=== PATIENT | female | born 1990 ===

== ENCOUNTER 2017-07-21 21:48 | Emergency (ER) | payer OTHER ==
[2017-07-21 22:17] VITALS: BP 112/59; PULSE 93; RESP 18; TEMP 98.8; O2SAT 99
--- NOTE | 2017-07-21 23:25 | ED PDOC ---
Arrival/HPI - General Chief Complaint: Back Pain Time Seen by Provider: 07/21/17 23:21 Historian: Patient EM Caveat: Acuity of Condition - History of Present Illness Narrative History of Present Illness (Text): 07/21/17 23:22 Patient is a 27 year old female with a history of LBP, presents to the ED with severe low back pain while dressing this morning and immediately felt pain down left leg to the knee with associated tingling. Denies fever, chills, trauma, n/v /d, loss of bladder or bowel, saddle paresthesia or any other complaints. Took Advil 400 mg twice with no change in status. Time/Duration: 24 hours Symptom Onset: Sudden Symptom Course: Unchanged Quality: Burning, Throbbing Severity Level: 8 Activities at Onset: Rest, Light Context: Sitting, Standing, Walking, Home Past Medical History - Provider Review Nursing Documentation Reviewed: Yes - Travel History Have you recently traveled outside [place] w/in the past 3 mons?: No - Past History Past History: No Previous - Pulmonary Hx Asthma: Yes - Psychiatric Hx Substance Use: No Family/Social History - Physician Review Nursing Documentation Reviewed: Yes Family/Social History: Unknown Family HX Smoking Status: n Hx Alcohol Use: No Hx Substance Use: No Allergies/Home Meds Allergies/Adverse Reactions: Allergies Penicillins Allergy (Verified 07/21/17 22:17) RASH Review of Systems - Review of Systems Constitutional: Normal Eyes: Normal ENT: Normal Respiratory: Normal Cardiovascular: Normal Gastrointestinal: Normal Genitourinary Female: Normal Musculoskeletal: Back Pain Skin: Normal Neurological: Normal Endocrine: Normal Hemo/Lymphatic: Normal Psychiatric: Normal Physical Exam Vital Signs Reviewed: Yes Vital Signs Temp Pulse Resp BP Pulse Ox 07/21/17 22:12 98.8 F 93 H 18 112/59 L 99 Temperature: Afebrile Blood Pressure: Normal Pulse: Regular Respiratory Rate: Normal Appearance: Positive for: Well-Appearing, Non-Toxic, Comfortable Pain Distress: Moderate Mental Status: Positive for: Alert and Oriented X 3 - Systems Exam Head: Present: Atraumatic, Normocephalic Neck: Present: Normal Range of Motion Respiratory/Chest: Present: Clear to Auscultation, Good Air Exchange. No: Respiratory Distress, Accessory Muscle Use Cardiovascular: Present: Regular Rate and Rhythm, Normal S1, S2. No: Murmurs Abdomen: Present: Normal Bowel Sounds. No: Tenderness, Distention, Peritoneal Signs Back: Present: Normal Inspection, Other (Left SIJ pain, (+) L SLR). No: CVA Tenderness, Midline Tenderness, Paraspinal Tenderness, Pain with Leg Raise, Decubitus Ulcer Upper Extremity: Present: Normal Inspection. No: Cyanosis, Edema Lower Extremity: Present: Normal Inspection. No: Edema Neurological: Present: GCS=15, CN II-XII Intact, Speech Normal Skin: Present: Warm, Dry, Normal Color. No: Rashes Psychiatric: Present: Alert, Oriented x 3, Normal Insight, Normal Concentration Medical Decision Making ED Course and Treatment: 07/21/17 23:23 Impression 27 yr old f with LBP w radiation down left LE x 1 day. On exam (+) SLR, Left, point tenderness to the Left SIJ; the rest of the exam is benign Plan poc hcg Toradol 30 mg IM assess and dispo Progress Note Advised to take naproxen prn and modify activities f/u with Spine and Pain specialist for PT and ongoing care ambulated well out of the ED - Medication Orders Current Medication Orders: Discontinued Medications Ketorolac Tromethamine (Toradol) 30 mg IM STAT STA Stop: 07/21/17 23:22 Last Admin: 07/21/17 23:32 Dose: 30 mg MAR Pain Assessment Document 07/21/17 23:32 OCS (Rec: 07/21/17 23:36 OCS [id number]) Pain Reassessment Is this a pain reassessment? No Sleep Is patient sleeping during reassessment? No Presence of Pain Presence of Pain Yes Pain Scale Used Pain Scale Used Numeric Location Left, Right or Bilateral Bilateral Upper or Lower Lower Pain Location Body Site Back Description Description Constant Intensity of Pain at present 10 Aggravating Factors ADL's IM Administration Charges Document 07/21/17 23:32 OCS (Rec: 07/21/17 23:36 OCS [id number]) Injection Site MAR Injection Site Left Deltoid Charges for Administration # of IM Administrations 1 Disposition/Present on Arrival - Present on Arrival Any Indicators Present on Arrival: Yes History of DVT/PE: No History of Uncontrolled Diabetes: No Urinary Catheter: No History of Decub. Ulcer: No History Surgical Site Infection Following: None - Disposition Have Diagnosis and Disposition been Completed?: Yes Diagnosis: Low back pain, Radicular low back pain Disposition: HOME/ ROUTINE Disposition Time: 23:26 Patient Plan: Discharge Condition: GOOD Discharge Instructions (ExitCare): Low Back Pain in Adults, Radiculopathy Additional Instructions: Deaaugust Morales Please follow up with the recommended spine and pain specialist. If you experience worsening of symptoms in the next 24hrs, return to the ER. Be Well Prescriptions: Naproxen [Naprosyn] 500 mg PO BID 5 Days #10 tablet Referrals: PCP,NO [Primary Care Provider] - Follow up with primary José Miguel Howe MD [Staff Provider] - Follow up with primary Forms: [email or web address] (Senegalese), WORK NOTE
== END 2017-07-21 23:40 | disposition home or self-care (01) ==
LOC: ED 21:48
DX: M54.16 Radiculopathy, lumbar region (principal); M54.5 Low back pain
CPT/HCPCS: 96372; 99282; J1885

== ENCOUNTER 2018-05-17 19:49 | Emergency (ER) | payer MEDICAID, OTHER ==
[2018-05-17 20:01] VITALS: BMI 30.9
[2018-05-17 20:05] VITALS: RESP 18; TEMP 98.2
[2018-05-17] MEDS ORDERED: Naproxen 550 mg Tab PO STA (20:32)
[2018-05-17] MEDS ORDERED: TDAP Vaccine 0.5 mL Syr IM ONE (20:32)
--- NOTE | 2018-05-17 21:23 | ED PDOC ---
Arrival/HPI - General Chief Complaint: Finger,Hand,&Wrist Time Seen by Provider: 05/17/18 19:53 Historian: Patient - History of Present Illness Narrative History of Present Illness (Text): 05/17/18 22:03 28 year old female, with no significant past medical history, presents to the emergency department status post injury. Patient states she slammed her second distal finger on the car door. Patient informs she sustained a partial nail avulsion. Patient states she went to urgent care prior, and was told to come to the ED. Patient informs her TDAP is not up to date. Patient denies any numbness, decreased ROM, active bleeding, or any other complaints. Time/Duration: Prior to Arrival Symptom Onset: Sudden Symptom Course: Unchanged Quality: Stabbing, Throbbing Activities at Onset: Light Past Medical History - Provider Review Nursing Documentation Reviewed: Yes - Past History Past History: No Previous - Infectious Disease Hx of Infectious Diseases: None - Pulmonary Hx Asthma: Yes - Psychiatric Hx Substance Use: No Family/Social History - Physician Review Nursing Documentation Reviewed: Yes Family/Social History: No Known Family HX Smoking Status: Never Smoked Hx Alcohol Use: No Hx Substance Use: No Allergies/Home Meds Allergies/Adverse Reactions: Allergies Penicillins Allergy (Verified 07/21/17 22:17) RASH Home Medications: Home Meds Medication Instructions Recorded Confirmed No Known Home Med 05/17/18 05/17/18 Review of Systems - Physician Review All systems were reviewed & negative as marked: Yes - Review of Systems Musculoskeletal: Myalgias (Right second distal finger) Skin: absent: Laceration Neurological: absent: Other (No Numbness) Physical Exam Vital Signs Reviewed: Yes Vital Signs Temp Pulse Resp BP Pulse Ox 05/17/18 20:04 98.2 F 96 H 18 124/87 99 Temperature: Afebrile Blood Pressure: Normal Pulse: Tachycardic Respiratory Rate: Normal Appearance: Positive for: Well-Appearing, Non-Toxic, Comfortable Pain Distress: None Mental Status: Positive for: Alert and Oriented X 3 - Systems Exam Head: Present: Atraumatic, Normocephalic Pupils: Present: PERRL Extroacular Muscles: Present: EOMI Conjunctiva: Present: Normal Mouth: Present: Moist Mucous Membranes Neck: Present: Normal Range of Motion Respiratory/Chest: Present: Clear to Auscultation, Good Air Exchange. No: Respiratory Distress, Accessory Muscle Use Cardiovascular: Present: Regular Rate and Rhythm, Normal S1, S2. No: Murmurs Abdomen: No: Tenderness, Distention, Peritoneal Signs Back: Present: Normal Inspection Upper Extremity: Present: Normal Inspection, Other (Partial nail avulsion, rest of nail intact and in place). No: Cyanosis, Edema Lower Extremity: Present: Normal Inspection. No: Edema Neurological: Present: GCS=15, CN II-XII Intact, Speech Normal Skin: Present: Warm, Dry, Normal Color. No: Rashes Psychiatric: Present: Alert, Oriented x 3, Normal Insight, Normal Concentration Medical Decision Making ED Course and Treatment: Impression: 28 year old female presents with injury to right second finger. ED course: -- Naproxen -- TDAP -- X-ray right hand Progress notes: 05/17/18 21:17 XR R hand : no fracture, no dislocation, as read by PA. Wound cleaned and dressed. Advised to follow up with primary care physician in 1-2 days without fail. Advised to take medication as prescribed. Return to the emergency room at any time for any new or worsening symptoms. Patient states she fully agrees with and understands discharge instructions. States that she agrees with the plan and disposition. Verbalized and repeated discharge instructions and plan. I have given the patient opportunity to ask any additional questions. - RAD Interpretation Radiology Orders: 05/17/18 20:32 HAND RIGHT 3 VIEWS [RAD] Stat - Medication Orders Current Medication Orders: Discontinued Medications Naproxen (Anaprox Ds) 550 mg PO ONCE STA Stop: 05/17/18 20:33 Last Admin: 05/17/18 20:39 Dose: 550 mg Tetanus/Reduced Diphtheria/Acell Pertussis (Boostrix Vaccine Inj) 0.5 ml IM .ONCE ONE Stop: 05/17/18 20:33 Last Admin: 05/17/18 20:39 Dose: 0.5 ml Immunization Registry Document 05/17/18 20:39 JESSICA (Rec: 05/17/18 20:39 JESSICA [id number]) [facility]-Date provided 04/27/17 MAR Immunization Data Document 05/17/18 20:39 JESSICA (Rec: 05/17/18 20:39 JESSICA [id number]) Immunization Data Vaccine Information Sheet Given Yes - PA / WELFARE ADVISER / Resident Statement MD/DO has reviewed & agrees with the documentation as recorded. - Scribe Statement The provider has reviewed the documentation as recorded by the Scribe Ashvin Hung All medical record entries made by the Scribe were at my direction and personally dictated by me. I have reviewed the chart and agree that the record accurately reflects my personal performance of the history, physical exam, medical decision making, and the department course for this patient. I have also personally directed, reviewed, and agree with the discharge instructions and disposition. Disposition/Present on Arrival - Present on Arrival Any Indicators Present on Arrival: No History of DVT/PE: No History of Uncontrolled Diabetes: No Urinary Catheter: No History of Decub. Ulcer: No History Surgical Site Infection Following: None - Disposition Have Diagnosis and Disposition been Completed?: Yes Diagnosis: Nail avulsion, finger Disposition: HOME/ ROUTINE Disposition Time: 21:15 Patient Plan: Discharge Condition: STABLE Discharge Instructions (ExitCare): Nail Avulsion (DC) Additional Instructions: Thank you for letting us take care of you today. You were treated for fingernail avulsion. The emergency medical care you received today was directed at your acute symptoms. Return to the Emergency Department if your symptoms worsen, do not improve, or if you have any other problems. Please contact your doctor in 2 days for re-evaluation and follow up. Bring any paperwork you were given at discharge with you along with any medications you are taking to your follow up visit. Our treatment cannot replace ongoing medical care by a primary care provider (PCP) outside of the emergency department. Thank you for allowing the [facility] team to be part of your care today. If you had an X-Ray : A Radiologist will review the ED reading if any change in treatment is needed we will contact you. Referrals: Amaury Fiore MD [Primary Care Provider] - Follow up with primary Forms: [employer] (E[place]ian), WORK NOTE
[2018-05-17 22:06] VITALS: BP 122/87; PULSE 89; O2SAT 100
--- NOTE | 2018-05-18 07:25 | RAD ---
PROCEDURE: Right Hand Radiographs. HISTORY: trauma 2nd digit COMPARISON: None. FINDINGS: BONES: Normal. No fracture. JOINTS: Normal. No osteoarthritic changes. SOFT TISSUES: Normal. OTHER FINDINGS: None. IMPRESSION: Normal right hand radiographs.
== END 2018-05-17 22:03 | disposition home or self-care (01) ==
LOC: ED 19:49
DX: S61.300A Unspecified open wound of right index finger with damage to nail, initial encounter (principal); W23.0XXA Caught, crushed, jammed, or pinched between moving objects, initial encounter; Z23 Encounter for immunization